=== PATIENT | male | born 1940 | race African-American/Black ===

== ENCOUNTER 2017-01-06 01:55 | Emergency (ER) | payer MEDICAID, MEDICARE ==
[~2017-01-06] VITALS: Ht 182.9 cm; Wt 73.0 kg
[~2017-01-06 01:55] MED LIST: ACET1TAB12 PO; ACETAZOLAMIDE PO; ATOR40TA70 PO; DIAZ10TA4 PO; ELIQUIS PO; HYDR-523 PO; LEVO100T9 PO; METOLAZONE PO
[2017-01-06] MEDS ORDERED: LIDOCAINE HCL 1% 20ML VIAL (Pyxis) INJ MC ONE (02:45)
[2017-01-06] MEDS ORDERED: BACITRACIN ZINC OINT UDPKT TOP ONE (02:45)
[2017-01-06] MEDS ORDERED: TETANUS, DIPHTHERIA, PERTUSSIS VAC/PF 0.5ML (>7YR OLD) IM ONE (02:45)
[2017-01-06 03:36] LABS: INR 1.2; PROTHROMBIN TIME 12.2 sec (9.4-11.6)
[2017-01-06 03:45] LABS: CARBON DIOXIDE 37 mEq/L (21-32); CHLORIDE 94 mEq/L (98-107); ETHANOL BLOOD < 10 mg/dL; TROPONIN I < 0.02 ng/mL (0.00-0.04)
[2017-01-06 03:46] LABS: HEMATOCRIT. 23.9 % (42.0-52.0); HEMOGLOBIN. 7.5 g/dL (14.0-18.0); MEAN CORPUSCULAR HEMOGLOBIN 25.4 pg (28.0-32.0); MEAN CORPUSCULAR VOLUME 81.3 fL (80.0-94.0); PLATELET 258 x1000/uL (130-400); RED BLOOD CELL COUNT 2.94 mill/uL (4.7-6.1); RED CELL DISTRIBUTION WIDTH 19.4 % (11.6-14.6)
[2017-01-06] MEDS ORDERED: ACETAMINOPHEN 325MG TABLET PO ONE (05:45)
[2017-01-06] MEDS ORDERED: SODIUM CHLORIDE 0.9% 1,000 ML IV NR (05:54)
[2017-01-06 06:37] LABS: *AMPHETAMINES SCREEN URINE NEGATIVE (NEGATIVE); *BARBITURATES SCREEN URINE NEGATIVE (NEGATIVE); *BENZODIAZEPINES SCREEN URINE NEGATIVE (NEGATIVE); *COCAINE SCREEN URINE NEGATIVE (NEGATIVE); CANNABINOID URINE SCREEN NEGATIVE (NEGATIVE); METHADONE URINE SCREEN NEGATIVE (NEGATIVE); OPIATES URINE SCREEN NEGATIVE (NEGATIVE); PHENCYCLIDINE URINE SCREEN NEGATIVE (NEGATIVE)
[2017-01-06 06:49] LABS: PLATELET ESTIMATE NORMAL
[2017-01-06 11:47] VITALS: BP 108/59
== END 2017-01-06 11:47 | disposition home or self-care (01) ==
LOC: ER 01:55
DX: S51.012A Laceration without foreign body of left elbow, initial encounter (principal); I50.9 Heart failure, unspecified; Z79.01 Long term (current) use of anticoagulants; W01.0XXA Fall on same level from slipping, tripping and stumbling without subsequent striking against object, initial encounter; Y93.89 Activity, other specified; Y92.89 Other specified places as the place of occurrence of the external cause; Y99.8 Other external cause status
CPT/HCPCS: 12013; 36415; 70450; 71010; 73080; 80053; 80305; 84484; 85025; 85610; 90471; 90715; 93005; 96360; 96361; 99285; G0482; J3490; J7030

== ENCOUNTER 2017-01-08 01:08 | Inpatient (IN) | payer MEDICARE, MEDICAID ==
[~2017-01-08] VITALS: Ht 188 cm; Wt 93.5 kg
[2017-01-08] MEDS ORDERED: SODIUM CHLORIDE 0.9% 1,000 ML IV ONE ×2 (02:11→02:14)
[2017-01-08] MEDS ORDERED: CLINDAMYCIN 600 MG in DEXTROSE 5% WATER 50 ML IV ONE (02:15)
[2017-01-08] MEDS ORDERED: BACITRACIN ZINC 15GM TUBE TOP ONE (02:45)
[2017-01-08 02:56] LABS: MEAN CORPUSCULAR HEMOGLOBIN 25.6 pg (28.0-32.0); MEAN PLATELET VOLUME 7.8 fl (7.4-10.4); PLATELET 192 x1000/uL (130-400); RED BLOOD CELL COUNT 2.11 mill/uL (4.7-6.1); RED CELL DISTRIBUTION WIDTH 18.8 % (11.6-14.6)
[2017-01-08 03:00] LABS: HEMOGLOBIN. 5.4 g/dL (14.0-18.0)
[2017-01-08 03:01] LABS: HEMATOCRIT. 17.3 % (42.0-52.0)
[2017-01-08 03:10] LABS: CARBON DIOXIDE 28 mEq/L (21-32); CHLORIDE 107 mEq/L (98-107)
[2017-01-08 03:58] LABS: INR 1.4; PROTHROMBIN TIME 14.1 sec (9.4-11.6)
[2017-01-08] MEDS ORDERED: SODIUM CHLORIDE 0.9% 1,000 ML IV SCH (05:33)
[2017-01-08] MEDS ORDERED: KCL 20MEQ/100ML PREMIX 100 ML IV ONE (06:30)
[2017-01-08 11:00] LABS: NUCLEATED RED BLOOD CELLS 1 /100 WBC; PLATELET ESTIMATE NORMAL
[2017-01-08 12:40] VITALS: BP 99/64
[2017-01-08] MEDS ORDERED: FURO40TA5 PO (14:02)
[2017-01-08] MEDS ORDERED: FERR325T6 PO (14:02)
[2017-01-08] MEDS ORDERED: KDUR20 PO (14:02)
[2017-01-08] MEDS ORDERED: METO-396 PO (14:04)
[2017-01-08] MEDS ORDERED: SODIUM CHLORIDE 0.45% 1,000 ML IV SCH (15:15)
[2017-01-08 16:00] VITALS: BP 106/61
[2017-01-08] MEDS ORDERED: METOLAZONE 2.5 MG PO SCH (17:00)
[2017-01-08] MEDS ORDERED: MEDICATION NOT ON FORMULARY EA (Ferrous Sulfate 325 MG) PO SCH (17:00)
[2017-01-08 18:34] LABS: HEMATOCRIT 24.4 % (42.0-52.0); HEMOGLOBIN 7.6 g/dL (14.0-18.0)
[2017-01-08 18:49] LABS: TOTAL IRON BINDING CAPACITY 303 ug/dL (250-450)
[2017-01-08] MEDS: FUROSEMIDE 40MG TABLET PO SCH (19:31)
[2017-01-08] MEDS: FERROUS SULFATE 325MG TABLET PO SCH (19:31)
[2017-01-08] MEDS: METOLAZONE 2.5MG TABLET PO SCH (19:31)
[2017-01-08] MEDS: CLINDAMYCIN 600 MG in DEXTROSE 5% WATER 50 ML IV SCH (19:31)
[2017-01-08 20:00] VITALS: BP 90/53
[2017-01-08] MEDS: METOPROLOL TARTRATE 25MG TABLET PO SCH (21:00)
[2017-01-08] MEDS: SODIUM CHL 0.45% + KCL 20MEQ/L 1,000 ML IV SCH (22:47)
[2017-01-08] MEDS: ATORVASTATIN CALCIUM 40MG TABLET PO SCH (22:48)
[2017-01-08] MEDS: TRAMADOL 50MG TABLET PO PRN (23:05)
[2017-01-09] VITALS (8 sets, daily range): BP systolic 82–102; BP diastolic 51–63
[2017-01-09] MEDS: ACETAMINOPHEN 325MG TABLET PO PRN ×3 (01:42→23:07)
[2017-01-09] MEDS: CLINDAMYCIN 600 MG in DEXTROSE 5% WATER 50 ML IV SCH ×3 (01:49→17:58)
[2017-01-09] MEDS: LEVOTHYROXINE SODIUM 100MCG TABLET PO SCH (06:57)
[2017-01-09] MEDS: TRAMADOL 50MG TABLET PO PRN ×2 (06:57→17:53)
[2017-01-09] MEDS ORDERED: INFLUENZA VIRUS VACCINE 0.5ML SYR IM ONE (08:00)
[2017-01-09] MEDS ORDERED: PNEUMOCOCCAL 23-VAL P-SAC VAC 0.5 ML IM ONE (08:00)
[2017-01-09] MEDS: FERROUS SULFATE 325MG TABLET PO SCH ×4 (08:58→17:43)
[2017-01-09] MEDS: POTASSIUM CHLORIDE 20MEQ TABLET SR PO SCH (08:59)
[2017-01-09] MEDS: METOLAZONE 2.5MG TABLET PO SCH ×2 (08:59→17:43)
[2017-01-09] MEDS: FUROSEMIDE 40MG TABLET PO SCH ×2 (08:59→17:43)
[2017-01-09] MEDS ORDERED: MEDICATION NOT ON FORMULARY EA (Metoprolol Succinate 25 MG) PO SCH (09:00)
[2017-01-09] MEDS: METOPROLOL TARTRATE 25MG TABLET PO SCH ×2 (09:00→21:00)
[2017-01-09] MEDS: PANTOPRAZOLE SODIUM 40 MG/VIAL IV SCH (09:12)
[2017-01-09] MEDS: SODIUM CHL 0.45% + KCL 20MEQ/L 1,000 ML IV SCH (12:47)
[2017-01-09] MEDS: CALCIUM CARBONATE/VITAMIN D3 500MG TABLET PO SCH ×2 (17:00→17:43)
[2017-01-09] MEDS: ATORVASTATIN CALCIUM 40MG TABLET PO SCH (21:29)
[2017-01-10] VITALS (7 sets, daily range): BP systolic 95–109; BP diastolic 51–66
[2017-01-10] MEDS: SODIUM CHL 0.45% + KCL 20MEQ/L 1,000 ML IV SCH ×2 (00:18→18:08)
[2017-01-10] MEDS: CLINDAMYCIN 600 MG in DEXTROSE 5% WATER 50 ML IV SCH ×3 (03:28→18:08)
[2017-01-10] MEDS: TRAMADOL 50MG TABLET PO PRN ×2 (03:31→08:48)
[2017-01-10] MEDS: LEVOTHYROXINE SODIUM 100MCG TABLET PO SCH (06:27)
[2017-01-10] MEDS: FERROUS SULFATE 325MG TABLET PO SCH ×6 (07:15→17:15)
[2017-01-10 07:54] LABS: BASOPHILS % 0.6 % (0.0-2.0); EOSINOPHILS % 0.8 % (0.0-5.0); HEMATOCRIT. 21.1 % (42.0-52.0); LYMPHOCYTES % 23.4 % (20.0-50.0); MEAN CORPUSCULAR HEMOGLOBIN 26.1 pg (28.0-32.0); MEAN CORPUSCULAR VOLUME 81.4 fL (80.0-94.0); MEAN PLATELET VOLUME 7.8 fl (7.4-10.4); MONOCYTES % 13.7 % (2.0-8.0); NEUTROPHILS % 61.5 % (40.0-76.0); PLATELET 196 x1000/uL (130-400); RED BLOOD CELL COUNT 2.59 mill/uL (4.7-6.1); RED CELL DISTRIBUTION WIDTH 18.1 % (11.6-14.6)
[2017-01-10 08:03] LABS: INR 1.2; PARTIAL THROMBOPLASTIN TIME 27.2 sec (23.4-31.0)
[2017-01-10 08:12] LABS: CARBON DIOXIDE 36 mEq/L (21-32); CHLORIDE 94 mEq/L (98-107)
[2017-01-10 08:22] LABS: HEMOGLOBIN. 6.8 g/dL (14.0-18.0)
[2017-01-10] MEDS: FUROSEMIDE 40MG TABLET PO SCH ×2 (08:48→17:15)
[2017-01-10] MEDS: METOLAZONE 2.5MG TABLET PO SCH ×2 (08:48→17:00)
[2017-01-10] MEDS: CALCIUM CARBONATE/VITAMIN D3 500MG TABLET PO SCH ×2 (08:48→17:00)
[2017-01-10] MEDS: PANTOPRAZOLE SODIUM 40 MG/VIAL IV SCH (08:49)
[2017-01-10] MEDS: POTASSIUM CHLORIDE 20MEQ TABLET SR PO SCH (08:49)
[2017-01-10] MEDS: METOPROLOL TARTRATE 25MG TABLET PO SCH ×3 (08:50→21:00)
[2017-01-10] MEDS ORDERED: SIMETHICONE 40 MG/0.6 ML 30ML ONE (13:53)
[2017-01-10] MEDS ORDERED: SODIUM CHLORIDE 0.9% 10ML VIAL ONE (13:53)
[2017-01-10 15:54] LABS: HEMATOCRIT 22.6 % (42.0-52.0); HEMOGLOBIN 7.3 g/dL (14.0-18.0)
[2017-01-10] MEDS ORDERED: MIDAZOLAM HCL 5 MG/5 ML VIAL ONE (19:29)
[2017-01-10] MEDS ORDERED: FENTANYL CITRATE/PF 50MCG/ML 2ML VIAL ONE (19:29)
[2017-01-10] MEDS ORDERED: MIDAZOLAM HCL 5 MG/5 ML VIAL IV PRN (20:19)
[2017-01-10] MEDS: ATORVASTATIN CALCIUM 40MG TABLET PO SCH (21:00)
[2017-01-11] VITALS: BP 101/71
[2017-01-11] MEDS: SODIUM CHL 0.45% + KCL 20MEQ/L 1,000 ML IV SCH ×2 (02:19→18:09)
[2017-01-11] MEDS: CLINDAMYCIN 600 MG in DEXTROSE 5% WATER 50 ML IV SCH ×3 (02:19→18:10)
[2017-01-11 04:00] VITALS: BP 102/64
[2017-01-11] MEDS: LEVOTHYROXINE SODIUM 100MCG TABLET PO SCH (06:45)
[2017-01-11 06:48] LABS: HEMATOCRIT 22.4 % (42.0-52.0); HEMOGLOBIN 7.2 g/dL (14.0-18.0); MEAN CORPUSCULAR HEMOGLOBIN 26.4 pg (28.0-32.0); MEAN CORPUSCULAR VOLUME 82.3 fL (80.0-94.0); PLATELET 197 x1000/uL (130-400); RED BLOOD CELL COUNT 2.72 mill/uL (4.7-6.1); RED CELL DISTRIBUTION WIDTH 18.1 % (11.6-14.6)
[2017-01-11] MEDS: FERROUS SULFATE 325MG TABLET PO SCH ×6 (07:15→18:09)
[2017-01-11] MEDS: FUROSEMIDE 40MG TABLET PO SCH ×2 (07:15→17:15)
[2017-01-11 07:36] VITALS: BP 106/67
[2017-01-11] MEDS: POTASSIUM CHLORIDE 20MEQ TABLET SR PO SCH ×2 (09:00→13:12)
[2017-01-11] MEDS: METOLAZONE 2.5MG TABLET PO SCH ×2 (09:00→18:09)
[2017-01-11 11:52] VITALS: BP 100/68
[2017-01-11] MEDS: CALCIUM CARBONATE/VITAMIN D3 500MG TABLET PO SCH ×3 (12:32→18:09)
[2017-01-11] MEDS: METOPROLOL TARTRATE 25MG TABLET PO SCH ×2 (12:32→20:43)
[2017-01-11] MEDS: PANTOPRAZOLE SODIUM 40 MG/VIAL IV SCH (13:11)
[2017-01-11] MEDS ORDERED: POTASSIUM CHLORIDE 20MEQ TABLET SR PO NR (13:45)
[2017-01-11 15:50] VITALS: BP 114/68
[2017-01-11 20:00] VITALS: BP 95/67
[2017-01-11] MEDS: ATORVASTATIN CALCIUM 40MG TABLET PO SCH (20:41)
[2017-01-11] MEDS ORDERED: ZOLPIDEM TARTRATE 5MG TABLET PO PRN (22:15)
[2017-01-12] VITALS: BP 91/61
[2017-01-12] MEDS: CLINDAMYCIN 600 MG in DEXTROSE 5% WATER 50 ML IV SCH ×2 (01:09→09:32)
[2017-01-12 04:00] VITALS: BP 91/66
[2017-01-12] MEDS: SODIUM CHL 0.45% + KCL 20MEQ/L 1,000 ML IV SCH (06:14)
[2017-01-12] MEDS: LEVOTHYROXINE SODIUM 100MCG TABLET PO SCH (06:15)
[2017-01-12 06:52] LABS: HEMOGLOBIN 7.4 g/dL (14.0-18.0); MEAN CORPUSCULAR HEMOGLOBIN 26.5 pg (28.0-32.0); MEAN CORPUSCULAR VOLUME 82.7 fL (80.0-94.0); PLATELET 209 x1000/uL (130-400); RED BLOOD CELL COUNT 2.78 mill/uL (4.7-6.1)
[2017-01-12 08:00] VITALS: BP 107/73
[2017-01-12] MEDS: METOPROLOL TARTRATE 25MG TABLET PO SCH (09:00)
[2017-01-12] MEDS: FERROUS SULFATE 325MG TABLET PO SCH ×2 (09:32→13:02)
[2017-01-12] MEDS: FUROSEMIDE 40MG TABLET PO SCH (09:33)
[2017-01-12] MEDS: CALCIUM CARBONATE/VITAMIN D3 500MG TABLET PO SCH (09:33)
[2017-01-12] MEDS: PANTOPRAZOLE SODIUM 40 MG/VIAL IV SCH (09:33)
[2017-01-12] MEDS: METOLAZONE 2.5MG TABLET PO SCH (09:33)
[2017-01-12] MEDS: POTASSIUM CHLORIDE 20MEQ TABLET SR PO SCH (09:33)
[2017-01-12 12:00] VITALS: BP 98/65
[2017-01-12 14:48] VITALS: BP 98/65
== END 2017-01-12 15:40 | disposition home health service (06) | DRG 811 ==
LOC: ER 01:19 → CANBEDREQ 03:24 → EDBEDREQSVC 11:38 → ENRESERV 11:56 → 5WST 12:03 → EDBEDREQ 12:06
PROVIDERS: ADMIT Hospitalist; ATTEND Hospitalist
PROC: 30233N1 Transfusion of Nonautologous Red Blood Cells into Peripheral Vein, Percutaneous Approach (ICD-10-PCS; principal; 2017-01-08)
PROC: 0DB78ZX Excision of Stomach, Pylorus, Via Natural or Artificial Opening Endoscopic, Diagnostic (ICD-10-PCS; 2017-01-10)
DX: D62 Acute posthemorrhagic anemia (principal); E43 Unspecified severe protein-calorie malnutrition; N17.9 Acute kidney failure, unspecified; D68.59 Other primary thrombophilia; I13.0 Hypertensive heart and chronic kidney disease with heart failure and stage 1 through stage 4 chronic kidney disease, or unspecified chronic kidney disease; E83.51 Hypocalcemia; I50.9 Heart failure, unspecified; E87.6 Hypokalemia; N18.9 Chronic kidney disease, unspecified; K29.70 Gastritis, unspecified, without bleeding; Z86.73 Personal history of transient ischemic attack (TIA), and cerebral infarction without residual deficits; Z79.899 Other long term (current) drug therapy; Z68.26 Body mass index [BMI] 26.0-26.9, adult
CPT/HCPCS: 36415; 70450; 71010; 73060; 73080; 73090; 80048; 80053; 80305; 83540; 83550; 83605; 83735; 84132; 84484; 85014; 85018; 85025; 85027; 85610; 85730; 86850; 86900; 86920; 87040; 88305; 88312; 88313; 90686; 90732; 93005; 96361; 96365; 96366; 96367; 97162; 99291; A4216; A6261; C1893; C9113; G0482; J2250; J3010; J3480; J3490; J7030; J7050; J7060; P9016

== ENCOUNTER 2017-01-18 01:35 | Inpatient (IN) | payer MEDICARE, MEDICAID ==
[~2017-01-18] VITALS: Ht 189.2 cm; Wt 97.5 kg
[~2017-01-18 01:35] MED LIST changes: -ACET1TAB12 PO; -DIAZ10TA4 PO; +FERR325T6 PO; +FURO40TA5 PO; -HYDR-523 PO; +KDUR20 PO; +METO-396 PO
[2017-01-18] MEDS ORDERED: METHYLPREDNISOLONE SOD SUCC 125 MG/2 ML VIAL IV STA (01:46)
[2017-01-18] MEDS ORDERED: ALBUTEROL (0.083%) 2.5MG/3ML NEB HHN STA (01:46)
[2017-01-18] MEDS ORDERED: IPRATROPIUM BROMIDE (0.02%) 0.5MG/2.5ML NEB HHN STA (01:46)
[2017-01-18] MEDS ORDERED: MAGNESIUM 2 G PREMIX 50 ML IV ONE (02:00)
[2017-01-18] MEDS ORDERED: ASPIRIN 81MG TABLET PO ONE (02:00)
[2017-01-18] MEDS ORDERED: NITROGLYCERIN OINT 1GM/INCH UDPKT TD ONE (02:00)
[2017-01-18] MEDS ORDERED: LEVOFLOXACIN 750MG PREMIX 150 ML IV ONE (02:00)
[2017-01-18] MEDS ORDERED: SODIUM CHLORIDE 0.9% 1000ML BAG (SEPSIS BOLUS) IV ONE (02:00)
[2017-01-18 04:30] LABS: CARBON DIOXIDE 34 mEq/L (21-32); CHLORIDE 97 mEq/L (98-107); ETHANOL BLOOD < 10 mg/dL; TROPONIN I 0.03 ng/mL (0.00-0.04)
[2017-01-18 05:03] LABS: BG BASE EXCESS 7.5 mmol/L (-2.0-2.0); BG DEOXYHEMOGLOBIN 1.9 % (0.0-5.0); BG FRACTION INSPIRED OXYGEN 36; BG HCO3 ACT 33.3 mmol/L (22.0-26.0); BG METHEMOGLOBIN 0.3 % (0.0-1.5); BG OXYGEN SATURATION 98.1 % (92.0-98.5); BG OXYHEMOGLOBIN 97.8 % (94.0-97.0); BG PCO2 55.7 mmHg (35.0-45.0); BG PH 7.395 (7.350-7.450); BG PO2 122.1 mmHg (75.0-100.0); BG SAMPLE SITE RIGHT RADIAL; BG TOTAL HEMOGLOBIN 8.3 g/dL (12.0-18.0); BG VENT MODE NASAL CANNULA
[2017-01-18 05:05] LABS: CLARITY URINE CLEAR (CLEAR); COLOR URINE YELLOW (YELLOW); GLUCOSE URINE NEGATIVE (NEGATIVE); KETONES URINE NEGATIVE (NEGATIVE); LEUKOCYTE ESTERASE URINE 2+ (NEGATIVE); NITRITE URINE NEGATIVE (NEGATIVE); OCCULT BLOOD URINE NEGATIVE (NEGATIVE); PH URINE 6.5 (4.5-8.0); PROTEIN URINE TRACE (NEGATIVE); SPECIFIC GRAVITY URINE 1.012 (1.005-1.030)
[2017-01-18 05:17] LABS: *AMPHETAMINES SCREEN URINE NEGATIVE (NEGATIVE); *BARBITURATES SCREEN URINE NEGATIVE (NEGATIVE); *BENZODIAZEPINES SCREEN URINE NEGATIVE (NEGATIVE); *COCAINE SCREEN URINE NEGATIVE (NEGATIVE); CANNABINOID URINE SCREEN NEGATIVE (NEGATIVE); METHADONE URINE SCREEN NEGATIVE (NEGATIVE); OPIATES URINE SCREEN NEGATIVE (NEGATIVE); PHENCYCLIDINE URINE SCREEN NEGATIVE (NEGATIVE)
[2017-01-18] MEDS: FUROSEMIDE 40MG/4ML VIAL IVP SCH ×4 (05:30→18:13)
[2017-01-18 06:39] LABS: HEMATOCRIT. 23.7 % (42.0-52.0); HEMOGLOBIN. 7.4 g/dL (14.0-18.0); MEAN CORPUSCULAR HEMOGLOBIN 26.4 pg (28.0-32.0); MEAN CORPUSCULAR VOLUME 84.4 fL (80.0-94.0)
[2017-01-18 06:40] LABS: BASOPHILS % 0.7 % (0.0-2.0); EOSINOPHILS % 0.3 % (0.0-5.0); LYMPHOCYTES % 17.2 % (20.0-50.0); MEAN PLATELET VOLUME 7.9 fl (7.4-10.4); MONOCYTES % 10.5 % (2.0-8.0); NEUTROPHILS % 71.3 % (40.0-76.0); PLATELET 299 x1000/uL (130-400); RED CELL DISTRIBUTION WIDTH 18.9 % (11.6-14.6)
[2017-01-18 06:42] LABS: D-DIMER 4.27 mg/L FEU (<0.50); INR 1.2; PROTHROMBIN TIME 12.4 sec (9.4-11.6)
[2017-01-18] MEDS ORDERED: IPRATROPIUM/ALBUTEROL 0.5-3(2.5)MG/3ML NEB INH PRN (08:00)
[2017-01-18] MEDS ORDERED: MAGNESIUM/ALUMINUM HYDROXIDE/SIMETHICONE 30ML UDC PO PRN (08:00)
[2017-01-18] MEDS ORDERED: DIPHENHYDRAMINE 50MG/ML VIAL IV PRN (08:00)
[2017-01-18] MEDS ORDERED: ACETAMINOPHEN 325MG TABLET PO PRN (08:00)
[2017-01-18] MEDS ORDERED: ONDANSETRON HCL 4MG/2ML VIAL IV PRN (08:00)
[2017-01-18 08:20] VITALS: BP 104/65
[2017-01-18 08:30] VITALS: BP 104/65
[2017-01-18] MEDS: METOPROLOL TARTRATE 25MG TABLET PO SCH ×2 (09:00→21:00)
[2017-01-18] MEDS: POTASSIUM CHLORIDE 20MEQ TABLET SR PO SCH (10:22)
[2017-01-18] MEDS: FERROUS SULFATE 325MG TABLET PO SCH (10:22)
[2017-01-18] MEDS: APIXABAN 2.5 MG TABLET PO SCH ×2 (10:22→18:13)
[2017-01-18] MEDS: LEVOTHYROXINE SODIUM 100MCG TABLET PO SCH (10:29)
[2017-01-18 10:53] VITALS: BP 104/65
[2017-01-18 12:20] VITALS: BP 94/64
[2017-01-18] MEDS: SODIUM CHLORIDE 0.9% INJ 3ML FLUSH IVF SCH ×2 (14:00→21:51)
[2017-01-18 16:00] VITALS: BP 98/68
[2017-01-18 20:00] VITALS: BP 95/65
[2017-01-18] MEDS: ATORVASTATIN CALCIUM 40MG TABLET PO SCH (21:51)
[2017-01-19] VITALS: BP 93/55
[2017-01-19] MEDS: FUROSEMIDE 40MG/4ML VIAL IVP SCH ×2 (07:15→17:53)
[2017-01-19 08:00] VITALS: BP_SYST 97; BP_DIAS 63; BP_DIAS 64
[2017-01-19] MEDS: APIXABAN 2.5 MG TABLET PO SCH ×2 (09:00→17:00)
[2017-01-19] MEDS: FERROUS SULFATE 325MG TABLET PO SCH (09:00)
[2017-01-19] MEDS: POTASSIUM CHLORIDE 20MEQ TABLET SR PO SCH (09:00)
[2017-01-19] MEDS: METOPROLOL TARTRATE 25MG TABLET PO SCH ×2 (09:00→21:00)
[2017-01-19 12:00] VITALS: BP 110/73
[2017-01-19] MEDS ORDERED: POTASSIUM CHLORIDE 20MEQ TABLET SR PO NR (14:00)
[2017-01-19 16:00] VITALS: BP 106/71
[2017-01-19 20:00] VITALS: BP 92/59
[2017-01-19] MEDS: ATORVASTATIN CALCIUM 40MG TABLET PO SCH (21:42)
[2017-01-19] MEDS: SODIUM CHLORIDE 0.9% INJ 3ML FLUSH IVF SCH (21:43)
[2017-01-20] VITALS: BP 96/56
[2017-01-20 04:00] VITALS: BP 112/74
[2017-01-20 06:14] LABS: BASOPHILS % 0.3 % (0.0-2.0); EOSINOPHILS % 0.1 % (0.0-5.0); HEMATOCRIT. 23.6 % (42.0-52.0); HEMOGLOBIN. 7.4 g/dL (14.0-18.0); LYMPHOCYTES % 12.8 % (20.0-50.0); MEAN CORPUSCULAR HEMOGLOBIN 26.6 pg (28.0-32.0); MEAN CORPUSCULAR VOLUME 85.1 fL (80.0-94.0); MEAN PLATELET VOLUME 8.1 fl (7.4-10.4); NEUTROPHILS % 77.8 % (40.0-76.0); PLATELET 324 x1000/uL (130-400); RED BLOOD CELL COUNT 2.77 mill/uL (4.7-6.1); RED CELL DISTRIBUTION WIDTH 18.9 % (11.6-14.6)
[2017-01-20] MEDS: SODIUM CHLORIDE 0.9% INJ 3ML FLUSH IVF SCH ×3 (06:26→20:58)
[2017-01-20] MEDS: FUROSEMIDE 40MG/4ML VIAL IVP SCH ×2 (06:26→17:06)
[2017-01-20] MEDS: LEVOTHYROXINE SODIUM 100MCG TABLET PO SCH (06:26)
[2017-01-20 07:41] VITALS: BP 98/60
[2017-01-20] MEDS: METOPROLOL TARTRATE 25MG TABLET PO SCH ×2 (09:00→21:00)
[2017-01-20] MEDS: FERROUS SULFATE 325MG TABLET PO SCH (09:06)
[2017-01-20] MEDS: APIXABAN 2.5 MG TABLET PO SCH ×2 (09:06→17:10)
[2017-01-20] MEDS: POTASSIUM CHLORIDE 20MEQ TABLET SR PO SCH (09:06)
[2017-01-20] MEDS ORDERED: POTASSIUM CHLORIDE 20MEQ TABLET SR PO NR (10:00)
[2017-01-20 12:00] VITALS: BP 105/60
[2017-01-20 16:00] VITALS: BP 103/65
[2017-01-20 20:00] VITALS: BP 100/66
[2017-01-20] MEDS: ATORVASTATIN CALCIUM 40MG TABLET PO SCH (20:57)
[2017-01-21] VITALS: BP 102/57
[2017-01-21 04:00] VITALS: BP 105/55
[2017-01-21] MEDS: SODIUM CHLORIDE 0.9% INJ 3ML FLUSH IVF SCH ×3 (06:36→20:41)
[2017-01-21] MEDS: LEVOTHYROXINE SODIUM 100MCG TABLET PO SCH (06:36)
[2017-01-21] MEDS: FUROSEMIDE 40MG/4ML VIAL IVP SCH ×2 (06:36→18:01)
[2017-01-21 08:00] VITALS: BP 108/72
[2017-01-21] MEDS: METOPROLOL TARTRATE 25MG TABLET PO SCH ×2 (09:00→21:00)
[2017-01-21] MEDS: APIXABAN 2.5 MG TABLET PO SCH ×2 (09:26→18:00)
[2017-01-21] MEDS: FERROUS SULFATE 325MG TABLET PO SCH (09:26)
[2017-01-21] MEDS: POTASSIUM CHLORIDE 20MEQ TABLET SR PO SCH (09:26)
[2017-01-21 12:00] VITALS: BP 110/71
[2017-01-21 16:00] VITALS: BP 97/67
[2017-01-21] MEDS: METOLAZONE 10MG TABLET PO SCH (18:00)
[2017-01-21] MEDS: ATORVASTATIN CALCIUM 40MG TABLET PO SCH (20:41)
[2017-01-22] VITALS: BP 107/70
[2017-01-22 04:00] VITALS: BP 103/61
[2017-01-22] MEDS: FUROSEMIDE 40MG/4ML VIAL IVP SCH (06:45)
[2017-01-22] MEDS: SODIUM CHLORIDE 0.9% INJ 3ML FLUSH IVF SCH ×2 (06:45→21:16)
[2017-01-22] MEDS: LEVOTHYROXINE SODIUM 100MCG TABLET PO SCH (06:45)
[2017-01-22 07:55] LABS: BASOPHILS % 0.6 % (0.0-2.0); EOSINOPHILS % 0.4 % (0.0-5.0); HEMATOCRIT. 24.4 % (42.0-52.0); HEMOGLOBIN. 7.7 g/dL (14.0-18.0); MEAN CORPUSCULAR HEMOGLOBIN 26.9 pg (28.0-32.0); MEAN CORPUSCULAR VOLUME 85.6 fL (80.0-94.0); MONOCYTES % 11.8 % (2.0-8.0); NEUTROPHILS % 70.2 % (40.0-76.0); PLATELET 310 x1000/uL (130-400); RED BLOOD CELL COUNT 2.85 mill/uL (4.7-6.1); RED CELL DISTRIBUTION WIDTH 19.2 % (11.6-14.6)
[2017-01-22 08:00] VITALS: BP 99/64
[2017-01-22] MEDS: POTASSIUM CHLORIDE 20MEQ TABLET SR PO SCH (08:39)
[2017-01-22] MEDS: METOLAZONE 10MG TABLET PO SCH (08:39)
[2017-01-22] MEDS: FERROUS SULFATE 325MG TABLET PO SCH (08:39)
[2017-01-22] MEDS: APIXABAN 2.5 MG TABLET PO SCH ×2 (08:39→17:52)
[2017-01-22] MEDS: METOPROLOL TARTRATE 25MG TABLET PO SCH ×2 (08:40→21:00)
[2017-01-22 12:00] VITALS: BP 93/56
[2017-01-22 16:12] VITALS: BP 86/57
[2017-01-22 20:00] VITALS: BP 103/52
[2017-01-22] MEDS: ATORVASTATIN CALCIUM 40MG TABLET PO SCH (21:15)
[2017-01-23] VITALS (9 sets, daily range): BP systolic 93–110; BP diastolic 56–74
[2017-01-23] MEDS: TEMAZEPAM 15MG CAPSULE PO PRN ×2 (01:15→20:03)
[2017-01-23] MEDS: SODIUM CHLORIDE 0.9% INJ 3ML FLUSH IVF SCH ×3 (06:00→20:04)
[2017-01-23] MEDS: LEVOTHYROXINE SODIUM 100MCG TABLET PO SCH (06:00)
[2017-01-23 07:35] LABS: BASOPHILS % 0.3 % (0.0-2.0); EOSINOPHILS % 0.5 % (0.0-5.0); HEMATOCRIT. 21.7 % (42.0-52.0); MEAN CORPUSCULAR HEMOGLOBIN 27.1 pg (28.0-32.0); MEAN CORPUSCULAR VOLUME 83.9 fL (80.0-94.0); MEAN PLATELET VOLUME 7.9 fl (7.4-10.4); MONOCYTES % 11.8 % (2.0-8.0); NEUTROPHILS % 75.4 % (40.0-76.0); PLATELET 324 x1000/uL (130-400); RED BLOOD CELL COUNT 2.59 mill/uL (4.7-6.1)
[2017-01-23] MEDS: METOPROLOL TARTRATE 25MG TABLET PO SCH ×2 (09:00→20:03)
[2017-01-23] MEDS ORDERED: POTASSIUM CHLORIDE 20MEQ TABLET SR PO SCH (09:15)
[2017-01-23] MEDS: APIXABAN 2.5 MG TABLET PO SCH ×2 (09:23→18:47)
[2017-01-23] MEDS: FERROUS SULFATE 325MG TABLET PO SCH (09:23)
[2017-01-23] MEDS: FUROSEMIDE 40MG/4ML VIAL IVP SCH (09:25)
[2017-01-23] MEDS: POTASSIUM CHLORIDE 20MEQ TABLET SR PO SCH (09:30)
[2017-01-23] MEDS: ATORVASTATIN CALCIUM 40MG TABLET PO SCH (20:03)
[2017-01-23] MEDS ORDERED: TEMAZEPAM 15MG CAPSULE PO PRN (20:30)
[2017-01-23] MEDS ORDERED: POTASSIUM CHLORIDE 20MEQ TABLET SR PO NR (20:30)
[2017-01-23 21:45] LABS: BASOPHILS % 0.7 % (0.0-2.0); EOSINOPHILS % 0.7 % (0.0-5.0); HEMATOCRIT. 23.9 % (42.0-52.0); HEMOGLOBIN. 7.6 g/dL (14.0-18.0); LYMPHOCYTES % 15.6 % (20.0-50.0); MEAN CORPUSCULAR HEMOGLOBIN 26.4 pg (28.0-32.0); MEAN CORPUSCULAR VOLUME 83.2 fL (80.0-94.0); MEAN PLATELET VOLUME 7.5 fl (7.4-10.4); MONOCYTES % 12.3 % (2.0-8.0); NEUTROPHILS % 70.7 % (40.0-76.0); PLATELET 319 x1000/uL (130-400); RED BLOOD CELL COUNT 2.87 mill/uL (4.7-6.1); RED CELL DISTRIBUTION WIDTH 18.6 % (11.6-14.6)
[2017-01-23 21:51] LABS: INR 1.2; PROTHROMBIN TIME 12.9 sec (9.4-11.6)
[2017-01-24] VITALS: BP 104/71
[2017-01-24 04:00] VITALS: BP 93/59
[2017-01-24] MEDS: SODIUM CHLORIDE 0.9% INJ 3ML FLUSH IVF SCH ×3 (06:02→22:17)
[2017-01-24] MEDS: LEVOTHYROXINE SODIUM 100MCG TABLET PO SCH (06:02)
[2017-01-24 06:51] LABS: BASOPHILS % 0.3 % (0.0-2.0); EOSINOPHILS % 0.8 % (0.0-5.0); HEMATOCRIT. 26.3 % (42.0-52.0); HEMOGLOBIN. 8.4 g/dL (14.0-18.0); LYMPHOCYTES % 16.9 % (20.0-50.0); MEAN CORPUSCULAR HEMOGLOBIN 26.8 pg (28.0-32.0); MEAN CORPUSCULAR VOLUME 84.4 fL (80.0-94.0); MONOCYTES % 11.8 % (2.0-8.0); NEUTROPHILS % 70.2 % (40.0-76.0); PLATELET 308 x1000/uL (130-400); RED BLOOD CELL COUNT 3.12 mill/uL (4.7-6.1); RED CELL DISTRIBUTION WIDTH 18.4 % (11.6-14.6)
[2017-01-24 08:00] VITALS: BP 95/61
[2017-01-24] MEDS: APIXABAN 2.5 MG TABLET PO SCH ×2 (08:42→16:57)
[2017-01-24] MEDS: FUROSEMIDE 40MG/4ML VIAL IVP SCH (08:42)
[2017-01-24] MEDS: POTASSIUM CHLORIDE 20MEQ TABLET SR PO SCH (08:42)
[2017-01-24] MEDS: FERROUS SULFATE 325MG TABLET PO SCH (08:42)
[2017-01-24] MEDS: METOPROLOL TARTRATE 25MG TABLET PO SCH (08:46)
[2017-01-24 09:07] LABS: A/G RATIO 0.9 (0.7-1.7); ALBUMIN 3.3 g/dL (2.9-4.4); ALPHA-1-GLOBULIN 0.2 g/dL (0.0-0.4); ALPHA-2-GLOBULIN 0.5 g/dL (0.4-1.0); BETA GLOBULIN 1.1 g/dL (0.7-1.3); GAMMA GLOBULINS 1.9 g/dL (0.4-1.8); GLOBULIN TOTAL 3.8 g/dL (2.2-3.9); M-SPIKE 0.4 g/dL (Not Observed); TOTAL PROTEIN SERUM 7.1 g/dL (6.0-8.5)
[2017-01-24 12:00] VITALS: BP 94/58
[2017-01-24 16:00] VITALS: BP 96/63
[2017-01-24 17:12] LABS: ANTI-NUCLEAR ANTIBODIES DIRECT Negative (Negative)
[2017-01-24 20:00] VITALS: BP 92/60
[2017-01-24] MEDS: ATORVASTATIN CALCIUM 40MG TABLET PO SCH (22:16)
[2017-01-25] VITALS: BP 93/60
[2017-01-25 04:00] VITALS: BP 96/69
[2017-01-25 06:12] LABS: COMPLEMENT C3 64 mg/dL (82-167)
[2017-01-25] MEDS: LEVOTHYROXINE SODIUM 100MCG TABLET PO SCH (06:25)
[2017-01-25] MEDS: SODIUM CHLORIDE 0.9% INJ 3ML FLUSH IVF SCH ×2 (06:25→17:38)
[2017-01-25 08:00] VITALS: BP 102/68
[2017-01-25] MEDS: POTASSIUM CHLORIDE 20MEQ TABLET SR PO SCH (08:27)
[2017-01-25] MEDS: FERROUS SULFATE 325MG TABLET PO SCH (08:28)
[2017-01-25] MEDS: APIXABAN 2.5 MG TABLET PO SCH ×2 (08:28→17:38)
[2017-01-25] MEDS: FUROSEMIDE 40MG/4ML VIAL IVP SCH (08:28)
[2017-01-25 10:21] LABS: BASOPHILS % 0.3 % (0.0-2.0); EOSINOPHILS % 0.5 % (0.0-5.0); HEMATOCRIT. 24.5 % (42.0-52.0); HEMOGLOBIN. 7.9 g/dL (14.0-18.0); LYMPHOCYTES % 12.2 % (20.0-50.0); MEAN CORPUSCULAR HEMOGLOBIN 27.1 pg (28.0-32.0); MEAN CORPUSCULAR VOLUME 84.2 fL (80.0-94.0); MEAN PLATELET VOLUME 7.5 fl (7.4-10.4); MONOCYTES % 10.7 % (2.0-8.0); NEUTROPHILS % 76.3 % (40.0-76.0); PLATELET 293 x1000/uL (130-400); RED CELL DISTRIBUTION WIDTH 18.8 % (11.6-14.6)
[2017-01-25 12:00] VITALS: BP 84/56
[2017-01-25 16:00] VITALS: BP 94/61
[2017-01-25 18:38] VITALS: BP 94/61
== END 2017-01-25 21:06 | DRG 291 ==
LOC: ER 01:35 → 5WST 05:33 → ENRESERV 06:53
PROVIDERS: ADMIT Internal Medicine; ATTEND Internal Medicine
PROC: 30233N1 Transfusion of Nonautologous Red Blood Cells into Peripheral Vein, Percutaneous Approach (ICD-10-PCS; principal; 2017-01-23)
DX: I13.0 Hypertensive heart and chronic kidney disease with heart failure and stage 1 through stage 4 chronic kidney disease, or unspecified chronic kidney disease (principal); J96.00 Acute respiratory failure, unspecified whether with hypoxia or hypercapnia; L89.159 Pressure ulcer of sacral region, unspecified stage; E87.4 Mixed disorder of acid-base balance; N17.9 Acute kidney failure, unspecified; E87.8 Other disorders of electrolyte and fluid balance, not elsewhere classified; I27.20 Pulmonary hypertension, unspecified; K92.2 Gastrointestinal hemorrhage, unspecified; I48.2 Chronic atrial fibrillation; I08.1 Rheumatic disorders of both mitral and tricuspid valves; I50.43 Acute on chronic combined systolic (congestive) and diastolic (congestive) heart failure; N39.0 Urinary tract infection, site not specified; R18.8 Other ascites; W18.39XA Other fall on same level, initial encounter; D64.9 Anemia, unspecified; N18.9 Chronic kidney disease, unspecified; K80.20 Calculus of gallbladder without cholecystitis without obstruction; R19.7 Diarrhea, unspecified; G47.33 Obstructive sleep apnea (adult) (pediatric); E03.9 Hypothyroidism, unspecified; E78.5 Hyperlipidemia, unspecified; E87.6 Hypokalemia; D49.89 Neoplasm of unspecified behavior of other specified sites; R26.9 Unspecified abnormalities of gait and mobility; F41.9 Anxiety disorder, unspecified; J44.9 Chronic obstructive pulmonary disease, unspecified; K59.00 Constipation, unspecified; Z86.718 Personal history of other venous thrombosis and embolism; Z86.73 Personal history of transient ischemic attack (TIA), and cerebral infarction without residual deficits; Z87.891 Personal history of nicotine dependence; Z99.81 Dependence on supplemental oxygen; Z90.81 Acquired absence of spleen; Z79.899 Other long term (current) drug therapy; Y93.89 Activity, other specified; Y99.8 Other external cause status; Y92.009 Unspecified place in unspecified non-institutional (private) residence as the place of occurrence of the external cause
CPT/HCPCS: 36415; 36600; 70450; 71010; 73080; 76705; 76770; 80048; 80053; 80305; 81001; 82270; 82375; 82805; 83605; 83690; 83735; 83880; 84155; 84165; 84443; 84484; 85025; 85379; 85384; 85610; 86038; 86160; 86850; 86900; 86920; 87040; 87086; 92523; 93005; 93306; 93970; 94640; 94664; 96365; 96366; 96367; 96375; 96376; 97116; 97162; 97166; 97530; 99285; G0482; J1200; J1940; J1956; J2930; J3475; J7030; J7611; J7620; P9016

== ENCOUNTER 2017-01-25 21:59 | Inpatient (IN) | payer MEDICARE, MEDICAID ==
[~2017-01-25] VITALS: Ht 189.2 cm; Wt 95.3 kg
[2017-01-25 22:00] VITALS: BP 104/66
[2017-01-25] MEDS ORDERED: MAGNESIUM/ALUMINUM HYDROXIDE/SIMETHICONE 30ML UDC PO PRN (22:15)
[2017-01-25] MEDS ORDERED: DIPHENHYDRAMINE 50MG/ML VIAL IV PRN (22:15)
[2017-01-25] MEDS ORDERED: ACETAMINOPHEN 325MG TABLET PO PRN (22:15)
[2017-01-25] MEDS ORDERED: ONDANSETRON HCL 4MG/2ML VIAL IV PRN (22:15)
[2017-01-25] MEDS ORDERED: IPRATROPIUM/ALBUTEROL 0.5-3(2.5)MG/3ML NEB HHN PRN (22:15)
[2017-01-25] MEDS: ATORVASTATIN CALCIUM 40MG TABLET PO SCH (22:43)
[2017-01-25] MEDS: TEMAZEPAM 15MG CAPSULE PO PRN (22:43)
[2017-01-26] MEDS: SODIUM CHLORIDE 0.9% INJ 3ML FLUSH IVF SCH ×3 (06:43→21:11)
[2017-01-26] MEDS: LEVOTHYROXINE SODIUM 100MCG TABLET PO SCH (06:43)
[2017-01-26 07:04] LABS: BASOPHILS % 0.3 % (0.0-2.0); EOSINOPHILS % 0.7 % (0.0-5.0); HEMATOCRIT. 24.2 % (42.0-52.0); HEMOGLOBIN. 7.9 g/dL (14.0-18.0); LYMPHOCYTES % 15.1 % (20.0-50.0); MEAN CORPUSCULAR HEMOGLOBIN 27.3 pg (28.0-32.0); MEAN CORPUSCULAR VOLUME 84.1 fL (80.0-94.0); MEAN PLATELET VOLUME 7.8 fl (7.4-10.4); MONOCYTES % 11.3 % (2.0-8.0); NEUTROPHILS % 72.6 % (40.0-76.0); PLATELET 287 x1000/uL (130-400); RED BLOOD CELL COUNT 2.88 mill/uL (4.7-6.1); RED CELL DISTRIBUTION WIDTH 18.1 % (11.6-14.6)
[2017-01-26 07:31] LABS: PREALBUMIN 11.6 mg/dL (20.0-40.0)
[2017-01-26 07:40] VITALS: BP 100/65
[2017-01-26 07:59] LABS: CHLORIDE 95 mEq/L (98-107)
[2017-01-26 08:09] LABS: CARBON DIOXIDE 43 mEq/L (21-32)
[2017-01-26] MEDS: POTASSIUM CHLORIDE 20MEQ TABLET SR PO SCH (08:42)
[2017-01-26] MEDS: APIXABAN 2.5 MG TABLET PO SCH ×2 (08:43→16:51)
[2017-01-26] MEDS: FERROUS SULFATE 325MG TABLET PO SCH (08:43)
[2017-01-26] MEDS: ACETAZOLAMIDE 250MG TABLET PO SCH (09:18)
[2017-01-26 15:30] VITALS: BP_SYST 90; BP_SYST 93; BP_SYST 94; BP_DIAS 59; BP_DIAS 64
[2017-01-26 17:35] LABS: CLARITY URINE CLEAR (CLEAR); COLOR URINE YELLOW (YELLOW); GLUCOSE URINE NEGATIVE (NEGATIVE); KETONES URINE NEGATIVE (NEGATIVE); LEUKOCYTE ESTERASE URINE 1+ (NEGATIVE); NITRITE URINE NEGATIVE (NEGATIVE); OCCULT BLOOD URINE NEGATIVE (NEGATIVE); PROTEIN URINE NEGATIVE (NEGATIVE); SPECIFIC GRAVITY URINE 1.013 (1.005-1.030)
[2017-01-26 20:00] VITALS: BP 91/57
[2017-01-26] MEDS: ATORVASTATIN CALCIUM 40MG TABLET PO SCH (21:11)
[2017-01-26] MEDS: TEMAZEPAM 15MG CAPSULE PO PRN (23:33)
[2017-01-27] MEDS: SODIUM CHLORIDE 0.9% INJ 3ML FLUSH IVF SCH ×3 (09:29→21:17)
[2017-01-27] MEDS: POTASSIUM CHLORIDE 20MEQ TABLET SR PO SCH (09:30)
[2017-01-27] MEDS: APIXABAN 2.5 MG TABLET PO SCH ×2 (09:30→16:47)
[2017-01-27] MEDS: LEVOTHYROXINE SODIUM 100MCG TABLET PO SCH (09:30)
[2017-01-27] MEDS: FERROUS SULFATE 325MG TABLET PO SCH (09:30)
[2017-01-27] MEDS: ACETAZOLAMIDE 250MG TABLET PO SCH (09:34)
[2017-01-27] MEDS ORDERED: LACTULOSE 20G/30ML UDC PO SCH (11:00)
[2017-01-27] MEDS: DOCUSATE SODIUM 100MG CAPSULE PO SCH (16:47)
[2017-01-27 18:07] LABS: CLARITY URINE CLEAR (CLEAR); COLOR URINE YELLOW (YELLOW); GLUCOSE URINE NEGATIVE (NEGATIVE); KETONES URINE NEGATIVE (NEGATIVE); LEUKOCYTE ESTERASE URINE 2+ (NEGATIVE); NITRITE URINE NEGATIVE (NEGATIVE); OCCULT BLOOD URINE NEGATIVE (NEGATIVE); PROTEIN URINE TRACE (NEGATIVE); SPECIFIC GRAVITY URINE 1.014 (1.005-1.030)
[2017-01-27 20:00] VITALS: BP 89/65
[2017-01-27] MEDS: POLYETHYLENE GLYCOL 3350 (17GM) 1 DOSE PACK PO SCH (20:19)
[2017-01-27] MEDS: ATORVASTATIN CALCIUM 40MG TABLET PO SCH (20:19)
[2017-01-27] MEDS ORDERED: TEMAZEPAM 15MG CAPSULE PO PRN (21:00)
[2017-01-27 23:11] VITALS: BP 92/58
[2017-01-28] MEDS: SODIUM CHLORIDE 0.9% INJ 3ML FLUSH IVF SCH ×3 (06:00→21:25)
[2017-01-28] MEDS: LEVOTHYROXINE SODIUM 100MCG TABLET PO SCH (06:12)
[2017-01-28 06:55] LABS: BASOPHILS % 0.4 % (0.0-2.0); EOSINOPHILS % 0.5 % (0.0-5.0); HEMATOCRIT. 23.9 % (42.0-52.0); HEMOGLOBIN. 7.5 g/dL (14.0-18.0); LYMPHOCYTES % 13.9 % (20.0-50.0); MEAN CORPUSCULAR HEMOGLOBIN 26.9 pg (28.0-32.0); MEAN CORPUSCULAR VOLUME 85.4 fL (80.0-94.0); MONOCYTES % 11.5 % (2.0-8.0); NEUTROPHILS % 73.7 % (40.0-76.0); PLATELET 289 x1000/uL (130-400); RED BLOOD CELL COUNT 2.79 mill/uL (4.7-6.1); RED CELL DISTRIBUTION WIDTH 19.3 % (11.6-14.6)
[2017-01-28 07:25] LABS: PHOSPHORUS 3.5 mg/dL (2.5-4.9)
[2017-01-28 07:52] LABS: FOLIC ACID (FOLATE) SERUM 7.6 ng/mL (>5.38)
[2017-01-28 08:00] VITALS: BP_SYST 90; BP_SYST 93; BP_DIAS 62; BP_DIAS 68
[2017-01-28] MEDS: FERROUS SULFATE 325MG TABLET PO SCH (08:21)
[2017-01-28] MEDS: ACETAZOLAMIDE 250MG TABLET PO SCH (08:21)
[2017-01-28] MEDS: APIXABAN 2.5 MG TABLET PO SCH ×2 (08:21→17:00)
[2017-01-28] MEDS: DOCUSATE SODIUM 100MG CAPSULE PO SCH ×2 (08:21→17:00)
[2017-01-28 08:37] LABS: PROSTRATE SPECIFIC AG TOTAL 0.77 ng/mL (0.0-4.0)
[2017-01-28] MEDS ORDERED: CYANOCOBALAMIN 1000MCG/ML VIAL IM NR (10:00)
[2017-01-28] MEDS ORDERED: LEVOFLOXACIN 250MG TABLET PO SCH (11:00)
[2017-01-28 14:46] LABS: INR 1.2; PROTHROMBIN TIME 12.4 sec (9.4-11.6)
[2017-01-28 19:14] LABS: HEMATOCRIT 23.6 % (42.0-52.0); HEMOGLOBIN 7.1 g/dL (14.0-18.0)
[2017-01-28 20:00] VITALS: BP 87/63
[2017-01-28 20:40] VITALS: BP 89/65
[2017-01-28] MEDS: ATORVASTATIN CALCIUM 40MG TABLET PO SCH (21:24)
[2017-01-28] MEDS: IRON SUCROSE COMPLEX 100 MG in SODIUM CHLORIDE 0.9% 100 ML IV SCH (21:24)
[2017-01-28] MEDS: POLYETHYLENE GLYCOL 3350 (17GM) 1 DOSE PACK PO SCH (21:25)
[2017-01-28] MEDS: PANTOPRAZOLE SODIUM 40 MG/VIAL IV SCH (21:25)
[2017-01-28 22:23] VITALS: BP 98/65
[2017-01-28 22:39] VITALS: BP 89/61
[2017-01-28] MEDS ORDERED: CEFTAZIDIME PENTAHYDRATE 1 G in DEXTROSE 5% WATER 50 ML IV SCH (23:00)
[2017-01-28 23:39] VITALS: BP 93/63
[2017-01-29 00:39] VITALS: BP 89/62
[2017-01-29 01:30] VITALS: BP 92/65
[2017-01-29] MEDS: IRON SUCROSE COMPLEX 100 MG in SODIUM CHLORIDE 0.9% 100 ML IV SCH (02:11)
[2017-01-29] MEDS: SODIUM CHLORIDE 0.9% INJ 3ML FLUSH IVF SCH (05:12)
[2017-01-29] MEDS: LEVOTHYROXINE SODIUM 100MCG TABLET PO SCH (06:10)
[2017-01-29 07:15] LABS: HEMATOCRIT 24.7 % (42.0-52.0); HEMOGLOBIN 7.7 g/dL (14.0-18.0)
[2017-01-29 08:00] VITALS: BP 85/60
[2017-01-29] MEDS: DOCUSATE SODIUM 100MG CAPSULE PO SCH (08:17)
[2017-01-29] MEDS: ACETAZOLAMIDE 250MG TABLET PO SCH (09:00)
[2017-01-29] MEDS: PANTOPRAZOLE SODIUM 40 MG/VIAL IV SCH (09:37)
[2017-01-29 13:09] LABS: HEMATOCRIT 25.3 % (42.0-52.0)
[2017-01-29 13:20] LABS: BG BASE EXCESS 13.9 mmol/L (-2.0-2.0); BG CARBOXYHEMOGLOBIN 0.9 % (0.5-1.5); BG DEOXYHEMOGLOBIN 5.3 % (0.0-5.0); BG FRACTION INSPIRED OXYGEN 28; BG HCO3 ACT 42.7 mmol/L (22.0-26.0); BG METHEMOGLOBIN 0.4 % (0.0-1.5); BG OXYGEN SATURATION 94.6 % (92.0-98.5); BG OXYHEMOGLOBIN 93.4 % (94.0-97.0); BG PCO2 89.3 mmHg (35.0-45.0); BG PH 7.297 (7.350-7.450); BG SAMPLE SITE RIGHT BRACHIAL; BG TOTAL HEMOGLOBIN 8.5 g/dL (12.0-18.0); BG VENT MODE NASAL CANNULA
[2017-01-29 13:27] VITALS: BP 93/63
[2017-02-01 13:12] LABS: 25-HYDROXY VITAMIN D3 10 ng/mL (.)
== END 2017-01-29 14:25 | disposition short-term general hospital (02) | DRG 70 ==
PROVIDERS: ADMIT Physical Medicine & Rehabilitation Spinal Cord Injury Medicine; ATTEND Internal Medicine
PROC: 30233N1 Transfusion of Nonautologous Red Blood Cells into Peripheral Vein, Percutaneous Approach (ICD-10-PCS; principal; 2017-01-28)
DX: G93.40 Encephalopathy, unspecified (principal); I50.43 Acute on chronic combined systolic (congestive) and diastolic (congestive) heart failure; E87.4 Mixed disorder of acid-base balance; N17.9 Acute kidney failure, unspecified; E46 Unspecified protein-calorie malnutrition; K92.2 Gastrointestinal hemorrhage, unspecified; I27.20 Pulmonary hypertension, unspecified; I42.9 Cardiomyopathy, unspecified; I48.0 Paroxysmal atrial fibrillation; R18.8 Other ascites; J98.11 Atelectasis; N39.0 Urinary tract infection, site not specified; R53.81 Other malaise; R26.9 Unspecified abnormalities of gait and mobility; G31.84 Mild cognitive impairment of uncertain or unknown etiology; D50.9 Iron deficiency anemia, unspecified; E03.9 Hypothyroidism, unspecified; E78.5 Hyperlipidemia, unspecified; J44.9 Chronic obstructive pulmonary disease, unspecified; N18.9 Chronic kidney disease, unspecified; N28.1 Cyst of kidney, acquired; Z82.49 Family history of ischemic heart disease and other diseases of the circulatory system; Z86.718 Personal history of other venous thrombosis and embolism; Z87.891 Personal history of nicotine dependence; Z90.81 Acquired absence of spleen; Z79.01 Long term (current) use of anticoagulants; Z68.26 Body mass index [BMI] 26.0-26.9, adult
CPT/HCPCS: 36415; 36600; 76705; 80048; 80053; 80061; 81001; 82270; 82306; 82375; 82607; 82728; 82746; 82805; 83036; 83540; 83550; 83735; 84100; 84134; 84153; 84443; 84630; 85014; 85018; 85025; 85610; 86850; 86900; 86920; 87077; 87086; 87186; 92523; 93970; 97110; 97116; 97163; 97167; 97530; 97532; 97535; A6261; C9113; J0713; J3420; J7040; J7050; J7060; P9016

== ENCOUNTER 2017-01-29 14:47 | Inpatient (IN) | payer MEDICARE, MEDICAID ==
[~2017-01-29] VITALS: Ht 190.5 cm; Wt 99.3 kg
[~2017-01-29 14:47] MED LIST changes: -METO-396 PO
[2017-01-29 15:13] VITALS: BP 107/66
[2017-01-29 16:00] VITALS: BP 97/67
[2017-01-29] MEDS: DEXT 5%/0.45% NACL 1000ML 1,000 ML IV SCH (16:39)
[2017-01-29] MEDS ORDERED: DIPHENHYDRAMINE 50MG/ML VIAL IV PRN (16:45)
[2017-01-29] MEDS ORDERED: DOCUSATE SODIUM 100MG CAPSULE PO PRN (16:45)
[2017-01-29] MEDS ORDERED: CLONIDINE 0.1MG TABLET PO PRN (16:45)
[2017-01-29] MEDS ORDERED: IPRATROPIUM/ALBUTEROL 0.5-3(2.5)MG/3ML NEB INH PRN (16:45)
[2017-01-29] MEDS ORDERED: ACETAMINOPHEN 325MG TABLET PO PRN ×2 (16:45)
[2017-01-29] MEDS ORDERED: IPRATROPIUM/ALBUTEROL 0.5-3(2.5)MG/3ML NEB HHN PRN (16:45)
[2017-01-29] MEDS ORDERED: ONDANSETRON HCL 4MG/2ML VIAL IV PRN ×2 (16:45)
[2017-01-29] MEDS ORDERED: METHYLPREDNISOLONE SOD SUCC 125 MG/2 ML VIAL IV NR (17:15)
[2017-01-29] MEDS: FERROUS SULFATE 325MG TABLET PO SCH (17:32)
[2017-01-29] MEDS: FUROSEMIDE 40MG/4ML VIAL IVP SCH (17:32)
[2017-01-29] MEDS ORDERED: IPRATROPIUM/ALBUTEROL 0.5-3(2.5)MG/3ML NEB HHN SCH (18:00)
[2017-01-29 18:32] LABS: HEPATITIS B SURFACE ANTIGEN NEGATIVE
[2017-01-29 19:00] LABS: HEPATITIS B CORE AB IGM NEGATIVE
[2017-01-29 19:02] LABS: HEPATITIS A AB IGM NEGATIVE (NEGATIVE)
[2017-01-29 20:00] VITALS: BP 104/66
[2017-01-29] MEDS: IPRATROPIUM/ALBUTEROL 0.5-3(2.5)MG/3ML NEB HHN SCH ×2 (20:12→23:26)
[2017-01-29] MEDS: BUDESONIDE 0.5MG/2ML NEB HHN SCH (20:12)
[2017-01-29] MEDS: ACETAZOLAMIDE 500MG ER CAPSULE PO SCH (21:41)
[2017-01-29] MEDS: ATORVASTATIN CALCIUM 40MG TABLET PO SCH (21:41)
[2017-01-29] MEDS: METHYLPREDNISOLONE SOD SUCC 40 MG/ML VIAL IV SCH (21:42)
[2017-01-29] MEDS: PANTOPRAZOLE SODIUM 40 MG/VIAL IV SCH (23:46)
[2017-01-30] VITALS: BP 110/56
[2017-01-30 04:14] VITALS: BP 98/58
[2017-01-30] MEDS: IPRATROPIUM/ALBUTEROL 0.5-3(2.5)MG/3ML NEB HHN SCH ×5 (04:27→20:17)
[2017-01-30] MEDS: METHYLPREDNISOLONE SOD SUCC 40 MG/ML VIAL IV SCH ×3 (05:38→22:16)
[2017-01-30 07:30] LABS: BG BASE EXCESS 16.1 mmol/L (-2.0-2.0); BG CARBOXYHEMOGLOBIN 0.8 % (0.5-1.5); BG DEOXYHEMOGLOBIN 6.3 % (0.0-5.0); BG FRACTION INSPIRED OXYGEN 28; BG HCO3 ACT 42.3 mmol/L (22.0-26.0); BG METHEMOGLOBIN 0.3 % (0.0-1.5); BG OXYGEN SATURATION 93.6 % (92.0-98.5); BG OXYHEMOGLOBIN 92.6 % (94.0-97.0); BG PCO2 64.1 mmHg (35.0-45.0); BG PH 7.437 (7.350-7.450); BG SAMPLE SITE LEFT RADIAL; BG TOTAL HEMOGLOBIN 8.2 g/dL (12.0-18.0); BG VENT MODE NASAL CANNULA
[2017-01-30 07:40] LABS: HEMATOCRIT. 23.3 % (42.0-52.0); HEMOGLOBIN. 7.3 g/dL (14.0-18.0); MEAN CORPUSCULAR HEMOGLOBIN 26.4 pg (28.0-32.0); MEAN CORPUSCULAR VOLUME 84.6 fL (80.0-94.0); MEAN PLATELET VOLUME 8.3 fl (7.4-10.4); PLATELET 254 x1000/uL (130-400); RED BLOOD CELL COUNT 2.75 mill/uL (4.7-6.1); RED CELL DISTRIBUTION WIDTH 17.8 % (11.6-14.6)
[2017-01-30] MEDS: BUDESONIDE 0.5MG/2ML NEB HHN SCH ×2 (07:57→20:16)
[2017-01-30 08:00] VITALS: BP 96/64
[2017-01-30] MEDS: POTASSIUM CHLORIDE 20MEQ TABLET SR PO SCH (08:22)
[2017-01-30] MEDS: LEVOTHYROXINE SODIUM 100MCG TABLET PO SCH (08:22)
[2017-01-30] MEDS: ACETAZOLAMIDE 500MG ER CAPSULE PO SCH ×2 (08:22→21:17)
[2017-01-30] MEDS: FERROUS SULFATE 325MG TABLET PO SCH ×3 (08:22→17:26)
[2017-01-30] MEDS: PANTOPRAZOLE SODIUM 40 MG/VIAL IV SCH (08:25)
[2017-01-30] MEDS: FUROSEMIDE 40MG/4ML VIAL IVP SCH ×2 (08:25→17:26)
[2017-01-30] MEDS ORDERED: LIDOCAINE HCL 1% 20ML VIAL (Pyxis) INJ ONE (09:19)
[2017-01-30] MEDS ORDERED: SODIUM BICARBONATE 4% (2.4MEQ) 5ML VIAL IV ONE (09:20)
[2017-01-30 09:21] LABS: CARBON DIOXIDE 38 mEq/L (21-32); CHLORIDE 101 mEq/L (98-107)
[2017-01-30] MEDS ORDERED: POTASSIUM CHLORIDE 20MEQ/PACKET PO NR (10:15)
[2017-01-30 12:00] VITALS: BP 93/59
[2017-01-30 12:36] LABS: AMMONIA 48 uMol/L (<32)
[2017-01-30 16:00] VITALS: BP 100/58
[2017-01-30 17:14] LABS: PLATELET ESTIMATE NORMAL
[2017-01-30] MEDS: DEXT 5%/0.45% NACL 1000ML 1,000 ML IV SCH (17:26)
[2017-01-30 20:00] VITALS: BP 88/41
[2017-01-30] MEDS: ATORVASTATIN CALCIUM 40MG TABLET PO SCH (21:17)
[2017-01-30] MEDS: LACTULOSE 20G/30ML UDC PO SCH (22:16)
[2017-01-31] VITALS (8 sets, daily range): BP systolic 86–96; BP diastolic 48–61
[2017-01-31] MEDS: IPRATROPIUM/ALBUTEROL 0.5-3(2.5)MG/3ML NEB HHN SCH ×6 (00:32→21:42)
[2017-01-31] MEDS: METHYLPREDNISOLONE SOD SUCC 40 MG/ML VIAL IV SCH ×3 (05:30→21:10)
[2017-01-31] MEDS: LACTULOSE 20G/30ML UDC PO SCH ×3 (05:30→21:10)
[2017-01-31 07:42] LABS: HEMATOCRIT. 27.3 % (42.0-52.0); HEMOGLOBIN. 8.4 g/dL (14.0-18.0); MEAN CORPUSCULAR HEMOGLOBIN 26.1 pg (28.0-32.0); MEAN CORPUSCULAR VOLUME 84.8 fL (80.0-94.0); MEAN PLATELET VOLUME 8.6 fl (7.4-10.4); PLATELET 233 x1000/uL (130-400); RED BLOOD CELL COUNT 3.23 mill/uL (4.7-6.1); RED CELL DISTRIBUTION WIDTH 18.7 % (11.6-14.6)
[2017-01-31] MEDS ORDERED: DIGOXIN 500MCG/2ML AMP IV NR ×2 (07:43→23:30)
[2017-01-31 07:56] LABS: CLARITY URINE CLEAR (CLEAR); COLOR URINE YELLOW (YELLOW); GLUCOSE URINE NEGATIVE (NEGATIVE); KETONES URINE NEGATIVE (NEGATIVE); LEUKOCYTE ESTERASE URINE 1+ (NEGATIVE); NITRITE URINE NEGATIVE (NEGATIVE); OCCULT BLOOD URINE NEGATIVE (NEGATIVE); PROTEIN URINE NEGATIVE (NEGATIVE); SPECIFIC GRAVITY URINE 1.016 (1.005-1.030); UROBILINOGEN URINE 0.2 E.U./dL (0.2-1.0)
[2017-01-31] MEDS: BUDESONIDE 0.5MG/2ML NEB HHN SCH ×2 (08:00→21:40)
[2017-01-31 08:51] LABS: *AMPHETAMINES SCREEN URINE NEGATIVE (NEGATIVE); *BARBITURATES SCREEN URINE NEGATIVE (NEGATIVE); *BENZODIAZEPINES SCREEN URINE NEGATIVE (NEGATIVE); *COCAINE SCREEN URINE NEGATIVE (NEGATIVE); CANNABINOID URINE SCREEN NEGATIVE (NEGATIVE); METHADONE URINE SCREEN NEGATIVE (NEGATIVE); OPIATES URINE SCREEN NEGATIVE (NEGATIVE); PHENCYCLIDINE URINE SCREEN NEGATIVE (NEGATIVE)
[2017-01-31] MEDS: POTASSIUM CHLORIDE 20MEQ TABLET SR PO SCH (09:08)
[2017-01-31] MEDS: FERROUS SULFATE 325MG TABLET PO SCH ×3 (09:08→17:14)
[2017-01-31] MEDS: PANTOPRAZOLE SODIUM 40 MG/VIAL IV SCH (09:09)
[2017-01-31] MEDS: LEVOTHYROXINE SODIUM 100MCG TABLET PO SCH (09:09)
[2017-01-31] MEDS ORDERED: POTASSIUM CHLORIDE 20MEQ TABLET SR PO NR ×3 (09:15→10:00)
[2017-01-31 10:43] LABS: ATYPICAL LYMPHOCYTES 1; NUCLEATED RED BLOOD CELLS 2 /100 WBC; PLATELET ESTIMATE NORMAL
[2017-01-31] MEDS: FUROSEMIDE 40MG/4ML VIAL IVP SCH ×2 (11:27→17:14)
[2017-01-31] MEDS: ACETAZOLAMIDE 500MG ER CAPSULE PO SCH ×2 (12:10→21:10)
[2017-01-31] MEDS: DEXT 5%/0.45% NACL 1000ML 1,000 ML IV SCH (16:39)
[2017-01-31] MEDS: ATORVASTATIN CALCIUM 40MG TABLET PO SCH (21:10)
[2017-01-31] MEDS: APIXABAN 2.5 MG TABLET PO SCH (21:10)
[2017-01-31] MEDS ORDERED: DEXTROSE 50% WATER 50ML SYRINGE IV PRN (23:30)
[2017-01-31] MEDS: METOPROLOL TARTRATE 25MG TABLET PO SCH (23:30)
[2017-02-01] VITALS (8 sets, daily range): BP systolic 83–103; BP diastolic 51–70
[2017-02-01] MEDS: IPRATROPIUM/ALBUTEROL 0.5-3(2.5)MG/3ML NEB HHN SCH ×3 (01:39→08:13)
[2017-02-01] MEDS: LACTULOSE 20G/30ML UDC PO SCH ×3 (06:19→22:08)
[2017-02-01] MEDS: METHYLPREDNISOLONE SOD SUCC 40 MG/ML VIAL IV SCH (06:19)
[2017-02-01 06:24] LABS: HEMATOCRIT. 25.3 % (42.0-52.0); HEMOGLOBIN. 7.8 g/dL (14.0-18.0); MEAN CORPUSCULAR HEMOGLOBIN 26.3 pg (28.0-32.0); MEAN CORPUSCULAR VOLUME 84.6 fL (80.0-94.0); MEAN PLATELET VOLUME 8.5 fl (7.4-10.4); PLATELET 234 x1000/uL (130-400); RED BLOOD CELL COUNT 2.99 mill/uL (4.7-6.1); RED CELL DISTRIBUTION WIDTH 18.7 % (11.6-14.6)
[2017-02-01] MEDS ORDERED: DIGOXIN 500MCG/2ML AMP IV NR (07:24)
[2017-02-01] MEDS: BLOOD SUGAR DIAGNOSTIC STRIP TEST SCH ×4 (07:57→21:00)
[2017-02-01] MEDS: LEVOTHYROXINE SODIUM 100MCG TABLET PO SCH (08:07)
[2017-02-01] MEDS: BUDESONIDE 0.5MG/2ML NEB HHN SCH ×2 (08:13→22:18)
[2017-02-01] MEDS: METOPROLOL TARTRATE 25MG TABLET PO SCH ×2 (09:00→21:00)
[2017-02-01] MEDS: INSULIN LISPRO 100 UNITS/ML SUBCUT SCH ×4 (09:01→21:00)
[2017-02-01] MEDS: POTASSIUM CHLORIDE 20MEQ TABLET SR PO SCH (09:03)
[2017-02-01] MEDS: ACETAZOLAMIDE 500MG ER CAPSULE PO SCH ×2 (09:03→22:08)
[2017-02-01] MEDS: APIXABAN 2.5 MG TABLET PO SCH ×2 (09:03→17:24)
[2017-02-01] MEDS: PANTOPRAZOLE SODIUM 40 MG/VIAL IV SCH (09:03)
[2017-02-01] MEDS: FERROUS SULFATE 325MG TABLET PO SCH ×3 (09:03→17:24)
[2017-02-01] MEDS: FUROSEMIDE 40MG/4ML VIAL IVP SCH ×2 (09:03→17:24)
[2017-02-01 10:52] LABS: AMMONIA 70 uMol/L (<32)
[2017-02-01 12:26] LABS: PLATELET ESTIMATE NORMAL
[2017-02-01] MEDS: ALBUTEROL (0.083%) 2.5MG/3ML NEB HHN SCH ×2 (14:27→22:17)
[2017-02-01] MEDS: ATORVASTATIN CALCIUM 40MG TABLET PO SCH (22:07)
[2017-02-01] MEDS ORDERED: BUDESONIDE 0.5MG/2ML NEB ONE (22:24)
[2017-02-02] VITALS: BP 102/50
[2017-02-02] MEDS: ALBUTEROL (0.083%) 2.5MG/3ML NEB HHN SCH ×2 (01:05→10:36)
[2017-02-02 04:00] VITALS: BP 101/50
[2017-02-02] MEDS: BLOOD SUGAR DIAGNOSTIC STRIP TEST SCH ×4 (05:39→21:00)
[2017-02-02] MEDS: LACTULOSE 20G/30ML UDC PO SCH ×4 (05:40→23:22)
[2017-02-02 05:56] LABS: HEMATOCRIT 25.7 % (42.0-52.0); HEMOGLOBIN 7.7 g/dL (14.0-18.0)
[2017-02-02 05:57] LABS: AMMONIA 132 uMol/L (<32)
[2017-02-02 08:00] VITALS: BP 104/55
[2017-02-02] MEDS: INSULIN LISPRO 100 UNITS/ML SUBCUT SCH ×4 (08:10→21:00)
[2017-02-02] MEDS: FERROUS SULFATE 325MG TABLET PO SCH ×3 (08:33→17:17)
[2017-02-02] MEDS: POTASSIUM CHLORIDE 20MEQ TABLET SR PO SCH (08:33)
[2017-02-02] MEDS: APIXABAN 2.5 MG TABLET PO SCH ×2 (08:33→17:17)
[2017-02-02] MEDS: ACETAZOLAMIDE 500MG ER CAPSULE PO SCH ×2 (08:33→21:02)
[2017-02-02] MEDS: FUROSEMIDE 40MG/4ML VIAL IVP SCH ×2 (08:33→17:17)
[2017-02-02] MEDS: PREDNISONE 20MG TABLET PO SCH (08:33)
[2017-02-02] MEDS: LEVOTHYROXINE SODIUM 100MCG TABLET PO SCH (08:33)
[2017-02-02] MEDS: PANTOPRAZOLE SODIUM 40 MG/VIAL IV SCH (08:33)
[2017-02-02] MEDS: METOPROLOL TARTRATE 25MG TABLET PO SCH ×2 (08:34→21:00)
[2017-02-02 12:00] VITALS: BP 91/62
[2017-02-02] MEDS: TERBINAFINE HCL 1% CREAM 30GM TOP SCH (12:42)
[2017-02-02 16:00] VITALS: BP 96/58
[2017-02-02] MEDS: CEFTAZIDIME PENTAHYDRATE 1 G in DEXTROSE 5% WATER 50 ML IV SCH ×2 (17:17→23:22)
[2017-02-02 18:21] LABS: BG BASE EXCESS 9.5 mmol/L (-2.0-2.0); BG CARBOXYHEMOGLOBIN 0.7 % (0.5-1.5); BG DEOXYHEMOGLOBIN 32.9 % (0.0-5.0); BG FRACTION INSPIRED OXYGEN 21; BG HCO3 ACT 37.3 mmol/L (22.0-26.0); BG OXYGEN SATURATION 66.9 % (92.0-98.5); BG OXYHEMOGLOBIN 66.4 % (94.0-97.0); BG PCO2 73.5 mmHg (35.0-45.0); BG PH 7.323 (7.350-7.450); BG PO2 34.5 mmHg (75.0-100.0); BG SAMPLE SITE RIGHT BRACHIAL; BG VENT MODE ROOM AIR
[2017-02-02 20:01] VITALS: BP 90/50
[2017-02-02] MEDS: IPRATROPIUM BROMIDE (0.02%) 0.5MG/2.5ML NEB HHN SCH (20:09)
[2017-02-02] MEDS: ATORVASTATIN CALCIUM 40MG TABLET PO SCH (21:02)
[2017-02-03] VITALS (7 sets, daily range): BP systolic 90–105; BP diastolic 57–68
[2017-02-03] MEDS: IPRATROPIUM BROMIDE (0.02%) 0.5MG/2.5ML NEB HHN SCH ×4 (02:45→21:04)
[2017-02-03] MEDS: LACTULOSE 20G/30ML UDC PO SCH ×3 (05:25→18:37)
[2017-02-03 06:44] LABS: HEMATOCRIT. 27.2 % (42.0-52.0); HEMOGLOBIN. 8.1 g/dL (14.0-18.0); MEAN CORPUSCULAR VOLUME 87.4 fL (80.0-94.0); MEAN PLATELET VOLUME 8.6 fl (7.4-10.4); PLATELET 197 x1000/uL (130-400); RED BLOOD CELL COUNT 3.11 mill/uL (4.7-6.1); RED CELL DISTRIBUTION WIDTH 18.8 % (11.6-14.6)
[2017-02-03 06:46] LABS: AMMONIA 107 uMol/L (<32)
[2017-02-03] MEDS: BLOOD SUGAR DIAGNOSTIC STRIP TEST SCH ×4 (07:40→21:00)
[2017-02-03 08:10] LABS: PHOSPHORUS 3.8 mg/dL (2.5-4.9)
[2017-02-03] MEDS: INSULIN LISPRO 100 UNITS/ML SUBCUT SCH ×4 (08:10→21:00)
[2017-02-03] MEDS: FUROSEMIDE 40MG/4ML VIAL IVP SCH (09:00)
[2017-02-03] MEDS: METOPROLOL TARTRATE 25MG TABLET PO SCH ×2 (09:00→21:00)
[2017-02-03 09:32] LABS: NUCLEATED RED BLOOD CELLS 2 /100 WBC; PLATELET ESTIMATE NORMAL
[2017-02-03] MEDS: CEFTAZIDIME PENTAHYDRATE 1 G in DEXTROSE 5% WATER 50 ML IV SCH ×2 (10:23→21:00)
[2017-02-03] MEDS: TERBINAFINE HCL 1% CREAM 30GM TOP SCH (10:28)
[2017-02-03] MEDS: PREDNISONE 20MG TABLET PO SCH (10:35)
[2017-02-03] MEDS: APIXABAN 2.5 MG TABLET PO SCH ×2 (10:35→18:37)
[2017-02-03] MEDS: FERROUS SULFATE 325MG TABLET PO SCH ×3 (10:36→18:37)
[2017-02-03] MEDS: LEVOTHYROXINE SODIUM 100MCG TABLET PO SCH (10:36)
[2017-02-03] MEDS: FAMOTIDINE 20MG TABLET PO SCH ×2 (10:36→18:37)
[2017-02-03] MEDS: POTASSIUM CHLORIDE 20MEQ TABLET SR PO SCH (10:36)
[2017-02-03] MEDS: ACETAZOLAMIDE 500MG ER CAPSULE PO SCH (10:36)
[2017-02-03] MEDS ORDERED: DIGOXIN 125MCG TABLET PO NR (11:36)
[2017-02-03 16:52] LABS: BG BASE EXCESS 10.8 mmol/L (-2.0-2.0); BG CARBOXYHEMOGLOBIN 0.7 % (0.5-1.5); BG DEOXYHEMOGLOBIN 9.7 % (0.0-5.0); BG HCO3 ACT 39.9 mmol/L (22.0-26.0); BG METHEMOGLOBIN 0.2 % (0.0-1.5); BG OXYGEN SATURATION 90.2 % (92.0-98.5); BG OXYHEMOGLOBIN 89.4 % (94.0-97.0); BG PCO2 87.6 mmHg (35.0-45.0); BG PH 7.276 (7.350-7.450); BG PO2 59.9 mmHg (75.0-100.0); BG SAMPLE SITE RIGHT BRACHIAL; BG TOTAL HEMOGLOBIN 9.4 g/dL (12.0-18.0); BG VENT MODE NASAL CANNULA
[2017-02-03] MEDS: ATORVASTATIN CALCIUM 40MG TABLET PO SCH (22:46)
[2017-02-04] VITALS (12 sets, daily range): BP systolic 93–110; BP diastolic 5–70
[2017-02-04] MEDS: IPRATROPIUM BROMIDE (0.02%) 0.5MG/2.5ML NEB HHN SCH ×4 (00:59→21:05)
[2017-02-04] MEDS: LACTULOSE 20G/30ML UDC PO SCH ×4 (01:00→17:42)
[2017-02-04] MEDS: ACETAZOLAMIDE 500MG ER CAPSULE PO SCH ×3 (01:00→21:16)
[2017-02-04 05:57] LABS: BG BASE EXCESS 10.5 mmol/L (-2.0-2.0); BG BILEVEL POS AIRWAY PRESSURE 15/5; BG CARBOXYHEMOGLOBIN 0.6 % (0.5-1.5); BG DEOXYHEMOGLOBIN 1.2 % (0.0-5.0); BG FRACTION INSPIRED OXYGEN 50; BG HCO3 ACT 38.4 mmol/L (22.0-26.0); BG METHEMOGLOBIN 0.2 % (0.0-1.5); BG OXYGEN SATURATION 98.8 % (92.0-98.5); BG PH 7.316 (7.350-7.450); BG PO2 140.8 mmHg (75.0-100.0); BG SAMPLE SITE RIGHT RADIAL; BG TOTAL HEMOGLOBIN 8.7 g/dL (12.0-18.0); BG VENT MODE MASK - BIPAP; BG VENT RATE 16 set
[2017-02-04] MEDS: LEVOTHYROXINE SODIUM 100MCG TABLET PO SCH (06:21)
[2017-02-04] MEDS: BLOOD SUGAR DIAGNOSTIC STRIP TEST SCH ×4 (06:21→21:19)
[2017-02-04 06:38] LABS: HEMATOCRIT. 24.9 % (42.0-52.0); HEMOGLOBIN. 7.7 g/dL (14.0-18.0); MEAN CORPUSCULAR HEMOGLOBIN 26.8 pg (28.0-32.0); MEAN CORPUSCULAR VOLUME 87.2 fL (80.0-94.0); MEAN PLATELET VOLUME 8.5 fl (7.4-10.4); PLATELET 180 x1000/uL (130-400); RED BLOOD CELL COUNT 2.86 mill/uL (4.7-6.1); RED CELL DISTRIBUTION WIDTH 18.8 % (11.6-14.6)
[2017-02-04] MEDS: INSULIN LISPRO 100 UNITS/ML SUBCUT SCH ×4 (07:20→21:00)
[2017-02-04] MEDS ORDERED: LIDOCAINE HCL 1% 20ML VIAL (Pyxis) INJ ONE (07:45)
[2017-02-04] MEDS ORDERED: SODIUM BICARBONATE 4% (2.4MEQ) 5ML VIAL IV ONE (07:45)
[2017-02-04] MEDS: TERBINAFINE HCL 1% CREAM 30GM TOP SCH (08:18)
[2017-02-04] MEDS: FAMOTIDINE 20MG TABLET PO SCH ×2 (08:18→17:42)
[2017-02-04] MEDS: FERROUS SULFATE 325MG TABLET PO SCH ×3 (08:21→17:42)
[2017-02-04] MEDS: CEFTAZIDIME PENTAHYDRATE 1 G in DEXTROSE 5% WATER 50 ML IV SCH ×2 (08:23→21:16)
[2017-02-04] MEDS: METOPROLOL TARTRATE 25MG TABLET PO SCH ×2 (09:00→21:19)
[2017-02-04 09:20] LABS: AMMONIA 86 uMol/L (<32)
[2017-02-04] MEDS: FUROSEMIDE 40MG/4ML VIAL IVP SCH (09:32)
[2017-02-04] MEDS: PREDNISONE 20MG TABLET PO SCH (09:33)
[2017-02-04] MEDS: APIXABAN 2.5 MG TABLET PO SCH ×2 (09:33→17:42)
[2017-02-04 10:06] LABS: PLATELET ESTIMATE NORMAL
[2017-02-04 11:55] LABS: VITAMIN B12 SERUM > 2000 pg/mL (211-911)
[2017-02-04 12:28] LABS: T4 FREE 1.02 ng/dL (0.76-1.46)
[2017-02-04] MEDS: ATORVASTATIN CALCIUM 40MG TABLET PO SCH (21:16)
[2017-02-05] VITALS (8 sets, daily range): BP systolic 92–115; BP diastolic 59–85
[2017-02-05] MEDS: LACTULOSE 20G/30ML UDC PO SCH ×4 (00:51→17:22)
[2017-02-05] MEDS: IPRATROPIUM BROMIDE (0.02%) 0.5MG/2.5ML NEB HHN SCH ×4 (01:12→20:51)
[2017-02-05] MEDS: BLOOD SUGAR DIAGNOSTIC STRIP TEST SCH ×4 (06:10→21:00)
[2017-02-05] MEDS: LEVOTHYROXINE SODIUM 100MCG TABLET PO SCH (06:10)
[2017-02-05] MEDS: INSULIN LISPRO 100 UNITS/ML SUBCUT SCH ×4 (07:20→21:00)
[2017-02-05 07:50] LABS: HEMOGLOBIN. 8.1 g/dL (14.0-18.0); MEAN CORPUSCULAR HEMOGLOBIN 26.7 pg (28.0-32.0); MEAN CORPUSCULAR VOLUME 86.1 fL (80.0-94.0); MEAN PLATELET VOLUME 8.8 fl (7.4-10.4); PLATELET 157 x1000/uL (130-400); RED BLOOD CELL COUNT 3.02 mill/uL (4.7-6.1); RED CELL DISTRIBUTION WIDTH 18.4 % (11.6-14.6)
[2017-02-05] MEDS: ACETAZOLAMIDE 500MG ER CAPSULE PO SCH ×2 (08:37→22:29)
[2017-02-05] MEDS: FAMOTIDINE 20MG TABLET PO SCH ×2 (08:37→16:35)
[2017-02-05] MEDS: FERROUS SULFATE 325MG TABLET PO SCH ×3 (08:37→16:35)
[2017-02-05] MEDS: PREDNISONE 20MG TABLET PO SCH ×2 (08:38→12:05)
[2017-02-05] MEDS: APIXABAN 2.5 MG TABLET PO SCH ×2 (08:38→16:35)
[2017-02-05] MEDS: METOPROLOL TARTRATE 25MG TABLET PO SCH (09:00)
[2017-02-05] MEDS: CEFTAZIDIME PENTAHYDRATE 1 G in DEXTROSE 5% WATER 50 ML IV SCH ×2 (09:07→22:30)
[2017-02-05] MEDS: TERBINAFINE HCL 1% CREAM 30GM TOP SCH (09:07)
[2017-02-05 10:59] LABS: BG BASE EXCESS 7.8 mmol/L (-2.0-2.0); BG BILEVEL POS AIRWAY PRESSURE 15/5; BG CARBOXYHEMOGLOBIN 0.6 % (0.5-1.5); BG DEOXYHEMOGLOBIN 7.9 % (0.0-5.0); BG FRACTION INSPIRED OXYGEN 28; BG HCO3 ACT 34.2 mmol/L (22.0-26.0); BG METHEMOGLOBIN 0.3 % (0.0-1.5); BG OXYHEMOGLOBIN 91.2 % (94.0-97.0); BG PCO2 59.9 mmHg (35.0-45.0); BG PH 7.375 (7.350-7.450); BG PO2 65.9 mmHg (75.0-100.0); BG SAMPLE SITE RIGHT BRACHIAL; BG TOTAL HEMOGLOBIN 9.2 g/dL (12.0-18.0); BG VENT MODE MASK - BIPAP
[2017-02-05] MEDS ORDERED: POTASSIUM CHLORIDE 20MEQ TABLET SR PO NR (13:00)
[2017-02-05] MEDS: FUROSEMIDE 40MG/4ML VIAL IVP SCH (14:28)
[2017-02-05] MEDS: SILDENAFIL CITRATE 20MG TABLET PO SCH ×2 (14:31→22:00)
[2017-02-05 15:53] LABS: AMMONIA 79 uMol/L (<32)
[2017-02-05 16:21] LABS: PLATELET ESTIMATE NORMAL
[2017-02-05] MEDS ORDERED: METOPROLOL TARTRATE 25MG TABLET PO SCH (21:00)
[2017-02-05] MEDS: ATORVASTATIN CALCIUM 40MG TABLET PO SCH (22:29)
[2017-02-06] VITALS (10 sets, daily range): BP systolic 83–150; BP diastolic 49–68
[2017-02-06] MEDS: IPRATROPIUM BROMIDE (0.02%) 0.5MG/2.5ML NEB HHN SCH ×4 (00:19→20:47)
[2017-02-06] MEDS: LACTULOSE 20G/30ML UDC PO SCH ×3 (00:41→12:33)
[2017-02-06] MEDS: SILDENAFIL CITRATE 20MG TABLET PO SCH ×3 (06:00→22:19)
[2017-02-06] MEDS: BLOOD SUGAR DIAGNOSTIC STRIP TEST SCH ×4 (06:54→21:18)
[2017-02-06] MEDS: LEVOTHYROXINE SODIUM 100MCG TABLET PO SCH (06:55)
[2017-02-06 07:13] LABS: HEMATOCRIT. 28.9 % (42.0-52.0); MEAN CORPUSCULAR VOLUME 86.7 fL (80.0-94.0); MEAN PLATELET VOLUME 8.4 fl (7.4-10.4); PLATELET 133 x1000/uL (130-400); RED BLOOD CELL COUNT 3.33 mill/uL (4.7-6.1); RED CELL DISTRIBUTION WIDTH 18.6 % (11.6-14.6)
[2017-02-06 07:18] LABS: CARBON DIOXIDE 36 mEq/L (21-32); CHLORIDE 100 mEq/L (98-107)
[2017-02-06] MEDS: INSULIN LISPRO 100 UNITS/ML SUBCUT SCH ×4 (07:20→21:00)
[2017-02-06] MEDS: FERROUS SULFATE 325MG TABLET PO SCH ×3 (08:07→17:25)
[2017-02-06] MEDS: PREDNISONE 20MG TABLET PO SCH (08:07)
[2017-02-06] MEDS: ACETAZOLAMIDE 500MG ER CAPSULE PO SCH ×2 (08:07→21:10)
[2017-02-06] MEDS: CEFTAZIDIME PENTAHYDRATE 1 G in DEXTROSE 5% WATER 50 ML IV SCH ×2 (08:08→21:11)
[2017-02-06] MEDS: FUROSEMIDE 40MG/4ML VIAL IVP SCH (08:08)
[2017-02-06] MEDS: APIXABAN 2.5 MG TABLET PO SCH ×2 (08:08→17:26)
[2017-02-06] MEDS: FAMOTIDINE 20MG TABLET PO SCH ×2 (08:08→17:29)
[2017-02-06] MEDS: TERBINAFINE HCL 1% CREAM 30GM TOP SCH (08:33)
[2017-02-06 10:34] LABS: NUCLEATED RED BLOOD CELLS 2 /100 WBC
[2017-02-06 10:35] LABS: PLATELET ESTIMATE NORMAL
[2017-02-06 14:06] LABS: BG BASE EXCESS 10.2 mmol/L (-2.0-2.0); BG CARBOXYHEMOGLOBIN 0.7 % (0.5-1.5); BG DEOXYHEMOGLOBIN 14.4 % (0.0-5.0); BG HCO3 ACT 37.6 mmol/L (22.0-26.0); BG METHEMOGLOBIN 0.2 % (0.0-1.5); BG OXYGEN SATURATION 85.5 % (92.0-98.5); BG OXYHEMOGLOBIN 84.7 % (94.0-97.0); BG PO2 50.2 mmHg (75.0-100.0); BG SAMPLE SITE RIGHT RADIAL; BG TOTAL HEMOGLOBIN 9.9 g/dL (12.0-18.0); BG VENT MODE ROOM AIR
[2017-02-06] MEDS: ATORVASTATIN CALCIUM 40MG TABLET PO SCH (21:10)
== END 2017-02-06 23:00 | DRG 291 ==
LOC: 7WST 14:47 → 3WST 02-03 20:51
PROVIDERS: ADMIT Internal Medicine; ATTEND Internal Medicine
PROC: 5A09457 Assistance with Respiratory Ventilation, 24-96 Consecutive Hours, Continuous Positive Airway Pressure (ICD-10-PCS; 2017-01-29)
PROC: 0W9G3ZZ Drainage of Peritoneal Cavity, Percutaneous Approach (ICD-10-PCS; principal; 2017-01-30)
PROC: 0HBRXZZ Excision of Toe Nail, External Approach (ICD-10-PCS; 2017-02-01)
PROC: 0HBRXZZ Excision of Toe Nail, External Approach (ICD-10-PCS; 2017-02-01)
PROC: 02HV33Z Insertion of Infusion Device into Superior Vena Cava, Percutaneous Approach (ICD-10-PCS; 2017-02-04)
PROC: B548ZZA Ultrasonography of Superior Vena Cava, Guidance (ICD-10-PCS; 2017-02-04)
DX: I13.0 Hypertensive heart and chronic kidney disease with heart failure and stage 1 through stage 4 chronic kidney disease, or unspecified chronic kidney disease (principal); I50.43 Acute on chronic combined systolic (congestive) and diastolic (congestive) heart failure; J96.22 Acute and chronic respiratory failure with hypercapnia; G92 Toxic encephalopathy; E87.4 Mixed disorder of acid-base balance; E46 Unspecified protein-calorie malnutrition; E72.20 Disorder of urea cycle metabolism, unspecified; N17.9 Acute kidney failure, unspecified; E87.2 Acidosis; I95.9 Hypotension, unspecified; I27.20 Pulmonary hypertension, unspecified; K92.2 Gastrointestinal hemorrhage, unspecified; R18.8 Other ascites; N39.0 Urinary tract infection, site not specified; I42.9 Cardiomyopathy, unspecified; W18.39XA Other fall on same level, initial encounter; I48.2 Chronic atrial fibrillation; B35.1 Tinea unguium; D63.8 Anemia in other chronic diseases classified elsewhere; E03.9 Hypothyroidism, unspecified; K57.30 Diverticulosis of large intestine without perforation or abscess without bleeding; E61.1 Iron deficiency; E78.5 Hyperlipidemia, unspecified; E87.6 Hypokalemia; I89.0 Lymphedema, not elsewhere classified; J44.9 Chronic obstructive pulmonary disease, unspecified; L60.0 Ingrowing nail; N18.9 Chronic kidney disease, unspecified; G47.30 Sleep apnea, unspecified; L60.3 Nail dystrophy; I34.0 Nonrheumatic mitral (valve) insufficiency; I36.1 Nonrheumatic tricuspid (valve) insufficiency; Z79.01 Long term (current) use of anticoagulants; Z82.49 Family history of ischemic heart disease and other diseases of the circulatory system; Z86.718 Personal history of other venous thrombosis and embolism; Z87.891 Personal history of nicotine dependence; Z90.81 Acquired absence of spleen; Z90.49 Acquired absence of other specified parts of digestive tract; Z79.899 Other long term (current) drug therapy; Z99.81 Dependence on supplemental oxygen; Y93.89 Activity, other specified; Y92.89 Other specified places as the place of occurrence of the external cause; Y99.8 Other external cause status; Z68.27 Body mass index [BMI] 27.0-27.9, adult
CPT/HCPCS: 36415; 36569; 36600; 49083; 70450; 70551; 71010; 76937; 80048; 80053; 80076; 80305; 81001; 82140; 82270; 82375; 82607; 82746; 82805; 82962; 83036; 83735; 84100; 84439; 84443; 84481; 85014; 85018; 85025; 85730; 86705; 86709; 86803; 87340; 92610; 93005; 94640; 94660; 97162; 97164; 97166; 97530; C1725; C1769; C1892; C1893; C9113; J0713; J1160; J1815; J1940; J2920; J2930; J3490; J7040; J7050; J7060; J7512; J7611; J7620; J7626